=== PATIENT | male | born 1985 | race Caucasian/White ===

== ENCOUNTER 2018-02-18 14:09 | Emergency (ER) | payer OTHER ==
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
[2018-02-18 16:36] VITALS: BP 127/81; PULSE 72; RESP 18; TEMP 98.5
== END 2018-02-18 16:20 | disposition home or self-care (01) ==
LOC: EC 14:09
DX: T20.07XD Burn of unspecified degree of neck, subsequent encounter (principal); T20.0 Burn of unspecified degree of head, face, and neck; T20.00XD Burn of unspecified degree of head, face, and neck, unspecified site, subsequent encounter; T21.0 Burn of unspecified degree of trunk; R50.9 Fever, unspecified; X08.8XXD Exposure to other specified smoke, fire and flames, subsequent encounter
CPT/HCPCS: 99283